=== PATIENT | female | born 1980 | race Caucasian/White ===

== ENCOUNTER 2021-04-11 16:13 | Day surgery (SDC) | payer BC ==
--- NOTE | 2021-04-11 17:16 | PCM.HP.2 ---
H&P History of Present Illness - General Date of Service: 04/11/21 Admit Problem/Dx: Admission Diagnosis/Problem Admission Diagnosis/Problem Appendicitis Source of Information: Patient, Provider History Limitations: Reports: No Limitations - History of Present Illness Initial Comments - Free Text/Narative: The patient is a 40-year-old woman who presented to the [facility] this afternoon with abdominal pain. The pain started yesterday morning and has gotten progressively worse. The pain is located in the right lower quadrant. She thinks she had a similar episode of pain 2 years ago. At [facility], lab work showed leukocytosis 16,[address] scan showed evidence of appendicitis with periappendiceal fluid and radiologist interpretation of impending perforation. The patient is walking around in her room in no apparent distress. She has chronic pain issues, and takes oral Dilaudid and has a fentanyl patch. She injects herself with Toradol. - Related Data Allergies/Adverse Reactions: Allergies Allergy/AdvReac Type Severity Reaction Status Date / Time erythromycin base Allergy Vomiting Verified 04/11/21 16:21 Home Medications: Home Meds ALPRAZolam [Alprazolam ER] 0.5 mg PO BID PRN 04/11/21 [History] Acetaminophen [Arthritis Pain Relief] 2 tab PO BID PRN 04/11/21 [History] Cetirizine HCl [All Day Allergy Relief] 10 mg PO DAILY 04/11/21 [History] DULoxetine [Cymbalta] 60 mg PO DAILY 04/11/21 [History] HYDROmorphone [Dilaudid] 1 - 2 tab PO QID PRN 04/11/21 [History] Ibuprofen [Motrin] 800 mg PO TID PRN 04/11/21 [History] Ipratropium [place] 2 spray HUBERT TID 04/11/21 [History] Ketorolac [Toradol] 2 ml IM DAILY PRN 04/11/21 [History] Levothyroxine 75 mcg PO DAILY 04/11/21 [History] Montelukast [Singulair] 10 mg PO DAILY 04/11/21 [History] Multivitamin with Minerals [Multiple Vitamin] 1 tab PO DAILY 04/11/21 [History] Ondansetron [Zofran ODT] 4 mg SL TID PRN 04/11/21 [History] Zolpidem [Ambien] 10 mg PO BEDTIME 04/11/21 [History] fentaNYL [Duragesic] 12 mcg TD Q72H 04/11/21 [History] tiZANidine [Zanaflex] 1 - 2 tab PO BEDTIME 04/11/21 [History] Past Medical History Neurological History: Reports: Migraines Endocrine/Metabolic History: Reports: Hypothyroidism - Past Surgical History HEENT Surgical History: Reports: Oral Surgery, Other (See Below) Other HEENT Surgeries/Procedures: nerve decompression surgery Social & Family History - Tobacco Use Tobacco Use Status *Q: Never Tobacco User Second Hand Smoke Exposure: No - Recreational Drug Use Recreational Drug Use: No H&P Review of Systems - Review of Systems: Review Of Systems: See Below General: Reports: Malaise HEENT: Reports: No Symptoms Pulmonary: Reports: No Symptoms Cardiovascular: Reports: No Symptoms Gastrointestinal: Reports: Abdominal Pain Genitourinary: Reports: No Symptoms Psychiatric: Reports: Anxiety Neurological: Reports: Headache Exam - Exam Exam: See Below - Vital Signs Vital Signs: Last Vital Signs Temp 36.4 C 04/11/21 16:17 Pulse 95 04/11/21 16:17 Resp 16 04/11/21 16:17 BP 136/89 04/11/21 16:17 Pulse Ox 99 04/11/21 16:17 Weight: 99.337 kg - Exam General: Alert, Oriented, Cooperative HEENT: Conjunctiva Clear Neck: Supple Lungs: Clear to Auscultation, Normal Respiratory Effort Cardiovascular: Regular Rate, Regular Rhythm GI/Abdominal Exam: Tender Skin: Warm, Dry Neuro Extensive - Mental Status: Alert, Oriented x3 Psychiatric: Normal Mood - Patient Data Lab Results Last 24 hrs: Laboratory Results - last 24 hr 04/11/21 Range/Units 16:31 Urine HCG, Qual Negative (NEGATIVE) Sepsis Event Note - Evaluation Sepsis Screening Result: No Definite Risk - Focused Exam Vital Signs: Vital Signs Temp Pulse Resp BP Pulse Ox 04/11/21 16:17 36.4 C 95 16 136/89 99 Problem List Initiated/Reviewed/Updated: Yes Orders Last 24hrs: Active Orders 24 hr Category Date Time Status Admission Status [Patient Status] [ADT] Routine ADT 04/11/21 17:03 Active CORONAVIRUS COVID-19 [facility] [[facility]LE[facility]] Stat Lab 04/11/21 16:28 Received cefOXitin [Mefoxin in Dextrose,Iso-Osm 2 GM/50 ML] 2 gm Med 04/11/21 17:11 Ordered Premix Bag 1 bag IV ONETIME Schedule Procedure [COMM] Stat Oth 04/11/21 17:04 Ordered Medication Orders Cefoxitin Sodium 2 gm/ Premix 50 mls @ 100 mls/hr IV ONETIME ONE Stop: 04/11/21 17:40 Assessment/Plan Comment:: Acute appendicitis. Plan for laparoscopic appendectomy. - Mortality Measure Prognosis:: Good
--- NOTE | 2021-04-11 17:23 | PCM.PRNOTE ---
- Free Text/Narrative Note: Date: 04/11/2021 Operation: laparoscopic appendectomy Indication: abdominal pain with leukocytosis and evidence of appendicitis on CT scan Surgeon: Abran Cárdenas MD EBL: 30 cc Specimen: appendix Antibiotic prophylaxis: 2 g cefoxitin IV prior to incision DVT ppx: SCDs Findings: Severe acute appendicitis without gangrene or perforation. Detailed Report: The patient was taken to the operating room and placed in supine position. Timeout was performed and general endotracheal anesthesia was initiated. The abdomen was prepped and draped in usual sterile fashion after talking the patient's left arm at her side. A Veress needle was placed at the left upper quadrant in order to establish pneumoperitoneum. Once pressure reached 15 mmHg, air was aspirated just inferior to the umbilicus with a needle and syringe. A small incision was made and a 12 mm bladed trocar was inserted just inferior to the umbilicus. A 5 mm 30 degree laparoscope was inserted into the abdomen and contents were inspected. There was no injury from Veress needle placement and this was removed. Additional 5 mm ports were placed, one in the suprapubic region and one in the left lower quadrant. The laparoscope was placed through the left lateral port, and the patient was placed in Trendelenburg and rotated towards the surgeon standing on the patient's left side. The appendix was identified. The appendix was inflamed and indurated and densely adherent to the terminal ileum. Careful blunt dissection was used to separate the appendix from surrounding tissue. A window in the mesoappendix was made at its base using the [place] LigaSure. The mesoappendix was divided using the [place] LigaSure. The appendix was stapled off at its base with a powered laparoscopic linear stapler using a 30 mm vascular load. There appeared to be a remnant of appendiceal stump after initial specimen was resected, though this appeared very close to the ileocecal junction. The cecum was straightened and a good line was identified to remove any remnant appendiceal tissue and part of the base of the cecum with a stapler. This additional short segment specimen was included with the initial specimen. The appendix was placed in an Endo Catch bag and removed through the umbilical port site. The dissection field was suctioned and appeared hemostatic. Scant thin purulent fluid in the pelvis was suctioned as well. Omentum was tucked over the staple line. The 12 mm port site was closed with 0 Vicryl using a laparoscopic suture passer under laparoscopic visualization. The left lateral port was removed under laparoscopic visualization and hemostasis was satisfactory. Pneumoperitoneum was released and the remaining port was removed. All skin incisions were closed at the level of skin with running subcuticular Vicryl suture and dressed with Dermabond. A total of 40 cc 0.5% Marcaine with epinephrine was used for local anesthetic throughout the case. The patient tolerated the procedure well.
[2021-04-11] MEDS ORDERED: Bupivacaine 0.5%/EPINEPHrine 1:200,000 50 ML MDV ONE (17:25)
[2021-04-11] MEDS ORDERED: cefOXitin 2 GM in Premix Bag 1 BAG IV ONE (17:30)
[2021-04-11] MEDS ORDERED: Lactated Ringers 1,000 ML IV ONE (17:37)
[2021-04-11] MEDS ORDERED: Citric Acid/Sodium Citrate Solution 30 ML Cup PO ONE (17:38)
[2021-04-11] MEDS ORDERED: Famotidine 20 MG/2 ML SDV IVPUSH ONE (17:38)
[2021-04-11] MEDS ORDERED: Ondansetron 4 MG/2 ML SDV ONE (17:43)
[2021-04-11] MEDS ORDERED: Dexamethasone 4 MG/ML 5 ML MDV ONE (17:43)
[2021-04-11] MEDS ORDERED: Lactated Ringers 1,000 ML ONE (17:43)
[2021-04-11] MEDS ORDERED: Lidocaine 1% 4 ML ONE ×2 (17:43→17:44)
[2021-04-11] MEDS ORDERED: Propofol 200 MG/20 ML SDV ONE (17:43)
[2021-04-11] MEDS ORDERED: Rocuronium 50 MG/5 ML Vial ONE (17:43)
[2021-04-11] MEDS ORDERED: Midazolam 1 MG/ML 2 ML SDV ONE (17:44)
[2021-04-11] MEDS ORDERED: fentaNYL 250 MCG/5 ML SDV ONE (17:44)
[2021-04-11] MEDS ORDERED: Succinylcholine/Sod PF 100 MG/5 ML SYRINGE IV ONE (17:44)
[2021-04-11] MEDS ORDERED: Ketamine 500 mg/10 ML MDV ONE (18:25)
[2021-04-11] MEDS ORDERED: HYDROmorphone 0.5 MG/0.5 ML Syringe ONE (18:31)
[2021-04-11] MEDS ORDERED: HYDROmorphone 0.5 MG/0.5 ML Syringe IVPUSH PRN (18:43)
[2021-04-11] MEDS ORDERED: Ondansetron 4 MG/2 ML SDV IVPUSH PRN (18:43)
[2021-04-11] MEDS ORDERED: fentaNYL 100 MCG/2 ML SDV IVPUSH PRN (18:43)
--- NOTE | 2021-04-11 18:49 | PCM.PREANE ---
Preanesthetic Assessment - Procedure Proposed Procedure: Laparoscopic Appendectomy - Anesthesia/Transfusion/Family Hx Anesthesia History: Prior Anesthesia Without Reaction Family History of Anesthesia Reaction: No - Review of Systems General: Weakness Pulmonary: No Symptoms Cardiovascular: No Symptoms Gastrointestinal: Abdominal Pain Neurological: Headache (Chronic Migraine Syndrome since 2010, Nerolysis procedure done, on chronic opioids for management, daily dilaudid, ketorolac, and fentanyl patch for management. ), Pre-Existing Deficit (Fibromyalgia) Other: Reports: None, Thyroid Problems, Depression, Anxiety - Physical Assessment NPO Status Date: 04/11/21 NPO Status Time: 13:30 Vital Signs: Last Vital Signs Temp 36.4 C 04/11/21 16:17 Pulse 95 04/11/21 16:17 Resp 16 04/11/21 16:17 BP 136/89 04/11/21 16:17 Pulse Ox 99 04/11/21 16:17 Weight: 99.337 kg ASA Class: 2E Mental Status: Alert & Oriented x3 Airway Class: Mallampati = 1 Dentition: Reports: [place](s), Missing Tooth/Teeth Thyro-Mental Finger Breadths: 3 Mouth Opening Finger Breadths: 3 ROM/Head Extension: Full Lungs: Clear to Auscultation, Normal Respiratory Effort Cardiovascular: Regular Rate, Regular Rhythm - Lab Values: Laboratory Last Values Urine HCG, Qual Negative (NEGATIVE) 04/11/21 16:31 SARS-CoV-2 RNA ([facility]) Negative (NEGATIVE) 04/11/21 16:28 Laboratory studies from [place] reviewed and acceptable. - Allergies Allergies/Adverse Reactions: Allergies Allergy/AdvReac Type Severity Reaction Status Date / Time erythromycin base AdvReac Vomiting Verified 04/11/21 17:13 - Anesthesia Plan Pre-Op Medication Ordered: Other (Famotadine and oral Bicitra) - Acknowledgements Anesthesia Type Planned: General Anesthesia (RSI) Pt an Appropriate Candidate for the Planned Anesthesia: Yes Alternatives and Risks of Anesthesia Discussed w Pt/Guardian: Yes Pt/Guardian Understands and Agrees with Anesthesia Plan: Yes Additional Comments: Guerda acknowledges her pain may be difficult to control due to her chronic opioid usage. Dr. Cárdenas also aware and agrees to do an intraoperative TAP block. All parties agreeable with plan and no further questions. PreAnesthesia Questionnaire Neurological History: Reports: Migraines Endocrine/Metabolic History: Reports: Hypothyroidism - Past Surgical History HEENT Surgical History: Reports: Oral Surgery, Other (See Below) Other HEENT Surgeries/Procedures: nerve decompression surgery - SUBSTANCE USE Tobacco Use Status *Q: Never Tobacco User Second Hand Smoke Exposure: No Recreational Drug Use History: No - HOME MEDS Home Medications: Home Meds ALPRAZolam [Alprazolam ER] 0.5 mg PO BID PRN 04/11/21 [History] Acetaminophen [Arthritis Pain Relief] 2 tab PO BID PRN 04/11/21 [History] Cetirizine HCl [All Day Allergy Relief] 10 mg PO DAILY 04/11/21 [History] DULoxetine [Cymbalta] 60 mg PO DAILY 04/11/21 [History] HYDROmorphone [Dilaudid] 1 - 2 tab PO QID PRN 04/11/21 [History] Ibuprofen [Motrin] 800 mg PO TID PRN 04/11/21 [History] Ipratropium [place] 2 spray HUBERT TID 04/11/21 [History] Ketorolac [Toradol] 2 ml IM DAILY PRN 04/11/21 [History] Levothyroxine 75 mcg PO DAILY 04/11/21 [History] Montelukast [Singulair] 10 mg PO DAILY 04/11/21 [History] Multivitamin with Minerals [Multiple Vitamin] 1 tab PO DAILY 04/11/21 [History] Ondansetron [Zofran ODT] 4 mg SL TID PRN 04/11/21 [History] Zolpidem [Ambien] 10 mg PO BEDTIME 04/11/21 [History] fentaNYL [Duragesic] 12 mcg TD Q72H 04/11/21 [History] oxyCODONE 5 mg PO Q6H PRN #10 tab 04/11/21 [Rx] tiZANidine [Zanaflex] 1 - 2 tab PO BEDTIME 04/11/21 [History] - CURRENT (IN HOUSE) MEDS Current Meds: Current Medications Discontinued Medications Bupivacaine HCl/Epinephrine Bitart (Bupivacaine 0.5%/Epinephrine 1:200,000 50 Ml Mdv) Confirm Administered Dose 50 ml .ROUTE .STK-MED ONE Stop: 04/11/21 17:26 Citric Acid/Sodium Citrate (Citric Acid/Sodium Citrate Solution 30 Ml Cup) 30 ml PO ONETIME ONE Stop: 04/11/21 17:39 Last Admin: 04/11/21 17:47 Dose: 30 ml Documented by: Dexamethasone (Dexamethasone 4 Mg/Ml 5 Ml Mdv) Confirm Administered Dose 20 mg .ROUTE .STK-MED ONE Stop: 04/11/21 17:44 Famotidine (Famotidine 20 Mg/2 Ml Sdv) 20 mg IVPUSH ONETIME ONE Stop: 04/11/21 17:39 Last Admin: 04/11/21 17:46 Dose: 20 mg Documented by: Fentanyl (Fentanyl 250 Mcg/5 Ml Sdv) Confirm Administered Dose 250 mcg .ROUTE .STK-MED ONE Stop: 04/11/21 17:45 Hydromorphone HCl (Hydromorphone 0.5 Mg/0.5 Ml Syringe) Confirm Administered Dose 0.5 mg .ROUTE .STK-MED ONE Stop: 04/11/21 18:32 Cefoxitin Sodium 2 gm/ Premix 50 mls @ 100 mls/hr IV ONETIME ONE Stop: 04/11/21 17:59 Lactated Ringer's (Ringers, Lactated) 1,000 mls @ 999 mls/hr IV .BOLUS ONE Stop: 04/11/21 18:37 Last Admin: 04/11/21 17:47 Dose: 999 mls/hr Documented by: Lidocaine HCl (Xylocaine-Mpf 1%) Confirm Administered Dose 4 mls @ as directed .ROUTE .STK-MED ONE Stop: 04/11/21 17:44 Lactated Ringer's (Ringers, Lactated) Confirm Administered Dose 1,000 mls @ as directed .ROUTE .STK-MED ONE Stop: 04/11/21 17:44 Lidocaine HCl (Xylocaine-Mpf 1%) Confirm Administered Dose 4 mls @ as directed .ROUTE .STK-MED ONE Stop: 04/11/21 17:45 Ketamine HCl (Ketamine 500 Mg/10 Ml Mdv) Confirm Administered Dose 500 mg .ROUTE .STK-MED ONE Stop: 04/11/21 18:26 Midazolam HCl (Midazolam 1 Mg/Ml 2 Ml Sdv) Confirm Administered Dose 2 mg .ROUTE .STK-MED ONE Stop: 04/11/21 17:45 Ondansetron HCl (Ondansetron 4 Mg/2 Ml Sdv) Confirm Administered Dose 4 mg .ROUTE .STK-MED ONE Stop: 04/11/21 17:44 Propofol (Propofol 200 Mg/20 Ml Sdv) Confirm Administered Dose 400 mg .ROUTE .STK-MED ONE Stop: 04/11/21 17:44 Rocuronium [place] (Rocuronium 50 Mg/5 Ml Vial) Confirm Administered Dose 50 mg .ROUTE .STK-MED ONE Stop: 04/11/21 17:44
[2021-04-11] MEDS ORDERED: Glycopyrrolate 0.2 MG/ML SDV ONE (19:15)
--- NOTE | 2021-04-11 19:39 | PCM.POSTAN ---
POST ANESTHESIA ASSESSMENT - MENTAL STATUS Mental Status: Alert, Oriented - VITAL SIGNS Vital Signs: Last Vital Signs Temp 36.3 C 04/11/21 19:28 Pulse 94 04/11/21 19:28 Resp 21 H 04/11/21 19:28 BP 133/75 04/11/21 19:28 Pulse Ox 100 04/11/21 19:28 - RESPIRATORY Respiratory Status: Respiratory Rate WNL, Airway Patent, O2 Saturation Stable - CARDIOVASCULAR CV Status: Pulse Rate WNL, Blood Pressure Stable - GASTROINTESTINAL GI Status: No Symptoms - PAIN Pain Score: 0 - POST OP HYDRATION Hydration Status: Adequate & Stable
--- NOTE | 2021-04-11 20:34 | PCM48HPAN ---
Post Anesthesia Note - EVALUATION WITHIN 48HRS OF ANESTHETIC Vital Signs in Normal Range: Yes Patient Participated in Evaluation: Yes Respiratory Function Stable: Yes Airway Patent: Yes Cardiovascular Function Stable: Yes Hydration Status Stable: Yes Pain Control Satisfactory: Yes Nausea and Vomiting Control Satisfactory: Yes Mental Status Recovered: Yes Vital Signs: Last Vital Signs Temp 36.6 C 04/11/21 20:15 Pulse 74 04/11/21 20:15 Resp 15 04/11/21 20:15 BP 127/79 04/11/21 20:15 Pulse Ox 96 04/11/21 20:15
[2021-04-11] MEDS ORDERED: oxyCODONE 5 MG Tab PO PRN (20:38)
[2021-04-12] MEDS ORDERED: Zolpidem 10 MG Tab PO PRN (01:14)
== END 2021-04-12 12:43 | disposition home or self-care (01) ==
LOC: JD.ED 16:13 → JD.SDS 17:15 → JD.MS 04-12 08:00 → JD.SDS 04-12 12:43
PROVIDERS: ATTEND Surgery
DX: K35.80 Unspecified acute appendicitis (principal); D72.829 Elevated white blood cell count, unspecified; E03.9 Hypothyroidism, unspecified; Z88.8 Allergy status to other drugs, medicaments and biological substances; Z79.899 Other long term (current) drug therapy; Z01.812 Encounter for preprocedural laboratory examination; Z20.822 Contact with and (suspected) exposure to COVID-19
CPT/HCPCS: 44970; 81025; 87635; A9270; J0330; J1100; J2250; J2704; J3010; J3490; J7120; 00840; 99140; J1170; J2405; U0002